=== PATIENT | female | born 1990 | race Caucasian/White ===

== ENCOUNTER 2022-06-10 08:15 | Emergency (ER) | payer MEDICAID ==
[~2022-06-10] VITALS: Ht 165.1 cm; Wt 52.0 kg
[2022-06-10 08:21] VITALS: BP 167/79
== END 2022-06-10 10:13 | disposition home or self-care (01) ==
LOC: ER 08:15
DX: H57.12 Ocular pain, left eye (principal); R51.9 Headache, unspecified; R11.0 Nausea
CPT/HCPCS: 99281